=== PATIENT | female | born 1990 | race Caucasian/White ===

== ENCOUNTER 2019-07-01 15:18 | Outpatient (CLI) | payer OTHER, SELFPAY ==
--- NOTE | 2019-07-01 15:26 | USCV_ITS ---
Tran Burnsney Age: 29 Gender: F : 1990 Exam Date: 07/01/2019 15:45 Ordering Phys: Mike Broussard MD Technologist: Silver Dugan [place] [facility] [place]: ? 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 AO BP: 120 / 70 HR: 96 Rhythm: Sinus Technical Quality: Suboptimal MEASUREMENTS (Male / Female) Normal Values 2D ECHO LV Diastolic Diameter PLAX 3.5 cm 4.2 - 5.9 / 3.9 - 5.3 cm LV Systolic Diameter PLAX 1.6 cm IVS Diastolic Thickness 0.8 cm 0.6 - 1.0 / 0.6 - 0.9 cm IVS Systolic Thickness 1.3 cm LVPW Diastolic Thickness 0.9 cm 0.6 - 1.0 / 0.6 - 0.9 cm LVPW Systolic Thickness 1.0 cm LVOT Diameter 2.0 cm LV Ejection Fraction 2D Teich 85.7 % LV Ejection Fraction MOD 2C 60.7 % LV Ejection Fraction 2C AL 61.5 % LA Diameter 3.4 cm Aorta at Sinotubular Diameter 1.9 cm M-MODE LV Diastolic Diameter MM 4.2 cm 4.2 - 5.9 / 3.9 - 5.3 cm LV Systolic Diameter MM 3.1 cm LV Ejection Fraction MM Teich 52.2 % IVS Diastolic Thickness MM 1.0 cm 0.6 - 1.0 / 0.6 - 0.9 cm IVS Systolic Thickness MM 1.3 cm LVPW Diastolic Thickness MM 1.2 cm 0.6 - 1.0 / 0.6 - 0.9 cm LVPW Systolic Thickness MM 1.6 cm RV Diastolic Diameter MM 2.1 cm Aortic Annulus Diameter 2.8 cm LA Ao Ratio MM 1.1 MV E Point Septal Separation 1.2 cm DOPPLER AV Peak Velocity 155.0 cm/s LVOT Peak Velocity 115.0 cm/s AV Area Cont Eq vti 2.8 cm squared AV Area Cont Eq pk 2.4 cm squared MV Area PHT 5.0 cm squared Mitral E to A Ratio 1.0 MV E' Velocity 83.0 cm/s Mitral E to LV E' Septal Ratio 6.2 FINDINGS Left Ventricle Normal left ventricular size, systolic function and wall thickness, with no regional wall motion abnormalities. Normal left ventricular wall thickness. Normal diastolic filling pattern. Right Ventricle The right ventricle is normal in size and function. Right Atrium The right atrium is normal in size. Left Atrium The left atrium is normal in size. Mitral Valve Structurally normal mitral valve without significant stenosis or prolapse. There is no mitral regurgitation. Aortic Valve Structurally normal aortic valve without significant sclerosis or stenosis. There is no aortic regurgitation. The valve appears to be tricuspid Tricuspid Valve Structurally normal tricuspid valve without significant stenosis or regurgitation. Pulmonary artery systolic pressure is normal. Pulmonic Valve Structurally normal pulmonic valve without significant stenosis. There is no pulmonic regurgitation. Pericardium Normal pericardium without effusion. Aorta Normal ascending aorta dimension. CONCLUSIONS NO BUBBLES PASSED FROM RT TO LT HEART WITH OR WITHOUT VALSALVA Normal transthoracic echocardiogram. There are no prior echocardiogram studies to compare. Dr. Raghu Pham MD (Electronically Signed) Final Date: 01 July 2019 17:08 S
== END 2019-07-01 15:19 | disposition home or self-care (01) ==
LOC: RAD 15:19
PROVIDERS: Family Provider Family Medicine; PCP Family Medicine; Visit Provider Family Medicine
DX: Z82.79 Family history of other congenital malformations, deformations and chromosomal abnormalities (principal)
CPT/HCPCS: C8929

== ENCOUNTER → 2020-06-07 09:20 | Outpatient (BNVA) | payer OTHER, SELFPAY | PROVIDERS: Family Provider Family Medicine; PCP Family Medicine; Visit Provider Internal Medicine | DX: E03.9 Hypothyroidism, unspecified (principal); M25.40 Effusion, unspecified joint | CPT/HCPCS: 99204 ==

== ENCOUNTER 2020-06-23 14:53 | Outpatient (CLI) | payer OTHER, SELFPAY ==
--- NOTE | 2020-06-23 15:05 | XR_ITS ---
WS: [id number] LEFT HAND: 2 VIEW(S) TECHNIQUE: PA and lateral. HISTORY: M25.50 - Pain in unspecified joint COMPARISON: 04/28/2019 No acute fracture or dislocation. No soft tissue or bone abnormality. No erosions or osteopenia. XR/XR hand LT 2V [id number] IMPRESSION: Normal LEFT hand.
--- NOTE | 2020-06-23 15:05 | XR_ITS ---
WS: [id number] RIGHT HAND: 2 VIEW(S) TECHNIQUE: PA and lateral. HISTORY: M25.50 - Pain in unspecified joint COMPARISON: 04/28/2019 No acute fracture or dislocation. No soft tissue or bone abnormality. No erosions or osteopenia. XR/XR hand RT 2V [id number] IMPRESSION: Normal RIGHT hand.
== END 2020-06-23 14:54 | disposition home or self-care (01) ==
LOC: RADWPI 14:57
PROVIDERS: PCP Family Medicine; Visit Provider Internal Medicine
DX: M25.50 Pain in unspecified joint (principal); M10.9 Gout, unspecified; Z11.1 Encounter for screening for respiratory tuberculosis; Z11.59 Encounter for screening for other viral diseases; E03.9 Hypothyroidism, unspecified; R53.83 Other fatigue
CPT/HCPCS: 73120; 99204

== ENCOUNTER 2020-06-23 15:43 | Outpatient (CLI) | payer OTHER, SELFPAY ==
[2020-06-23 17:42] LABS: Basophils % 0.4 %; Eosinophils # 0.1 10^3/uL (0.0-0.8); Eosinophils % 0.5 %; Hematocrit 45.7 % (37.0-47.0); Hemoglobin 14.6 g/dL (11.5-15.3); Lymphocytes # 2.3 10^3/uL (0.8-4.8); Lymphocytes % 20.4 %; Mean Corpuscular HGB Conc 31.9 g/dL (30.0-36.0); Mean Corpuscular Hemoglobin 29.2 pg (28.0-34.0); Mean Corpuscular Volume 91.4 fL (81-99); Mean Platelet Volume 10.4 fL (7.4-10.4); Monocytes # 0.5 10^3/uL (0.2-0.9); Monocytes % 4.7 %; Neutrophils # 8.14 10^3/uL (1.8-7.7); Neutrophils % 73.7 %; Nucleated Red Blood Cells % 0 %; Platelet Count 335 10^3/cmm (130-400)
[2020-06-23 17:48] LABS: Alanine Aminotransferase 22 U/L (0-33); Albumin Level 4.1 g/dL (3.5-5.2); Alkaline Phosphatase 137 IU/L (35-105); Anion Gap 13.9 (5-19); Aspartate Amino Transferase 16 U/L (0-32); Blood Urea Nitrogen 10 mg/dL (6-20); Calcium 9.1 mg/dL (8.5-10.5); Carbon Dioxide 24 mmol/L (22-29); Chloride 102 mmol/L (98-107); Globulin 3.6 g/dL (1.3-4.6); Glomerular Filtration Rate 98.9 mL/min (90-130); Glucose 87 mg/dL (65-115); Magnesium 2.2 mg/dL (1.7-2.3); Osmolality Calculated 280 mOsm/kg (285-295); Potassium 3.9 mmol/L (3.5-5.1); Sodium 136 mmol/L (136-145); Total Bilirubin 0.3 mg/dL (0.15-1.2); Total Protein 7.7 g/dL (6.6-8.7); Uric Acid 5.2 mg/dL (2.4-5.7)
[2020-06-23 23:51] LABS: Ferritin 95 ng/mL (15-150); Iron 92 ug/dL (37-145)
[2020-06-24 06:22] LABS: C Reactive Protein 1.8 mg/L (0.0-4.9)
[2020-06-25 10:24] LABS: COMPLEMENT COMPONENT C3C 170 mg/dL (83-193); COMPLEMENT COMPONENT C4C 36 mg/dL (15-57)
[2020-06-25 12:59] LABS: COMPLEMENT, TOTAL (CH50) 40 U/mL (31-60)
[2020-06-25 13:29] LABS: Cyclic Citrullinated Peptide <16 UNITS; Quantiferon Mitogen >10.00 IU/mL; Quantiferon Nil 0.04 IU/mL; Quantiferon Plus TB1 <0.00 IU/mL; Quantiferon Plus TB2 <0.00 IU/mL; Quantiferon TB Gold NEGATIVE (NEGATIVE)
[2020-06-27 23:23] LABS: Tissue Transglutaminase IgA Ab <1 U/mL; Tissue transglutaminase Ab.IgG <1 U/mL
[2020-06-28 14:33] LABS: ANA SCREEN, IFA NEGATIVE (NEGATIVE)
[2020-06-28 15:03] LABS: CENTROMERE B ANTIBODY <1.0 NEG AI (<1.0 NEG); JO-1 ANTIBODY <1.0 NEG AI (<1.0 NEG); RNP ANTIBODY <1.0 NEG AI (<1.0 NEG); SCL-70 ANTIBODY <1.0 NEG AI (<1.0 NEG); SJOGREN'S ANTIBODY (SS-A) <1.0 NEG AI (<1.0 NEG); SM ANTIBODY <1.0 NEG AI (<1.0 NEG); SS-B <1.0 NEG AI (<1.0 NEG); THYROID PEROXIDASE ANTIBODIES 2 IU/mL (<9)
[2020-06-28 16:39] LABS: Gliadin Ab.IgA 5 U (<20); Gliadin Ab.IgG 3 U (<20)
[2020-06-28 22:43] LABS: Immunoglobulin A 134 mg/dL (47-310)
[2020-06-30 23:13] LABS: DNA AB (DS) CRITHIDIA,IFA NEGATIVE (NEGATIVE)
== END 2020-06-23 15:44 | disposition home or self-care (01) ==
PROVIDERS: PCP Family Medicine; Visit Provider Internal Medicine
DX: D86.9 Sarcoidosis, unspecified (principal); M25.50 Pain in unspecified joint; M32.9 Systemic lupus erythematosus, unspecified; M10.9 Gout, unspecified
CPT/HCPCS: 36415; 80053; 82728; 82784; 83516; 83540; 83735; 84550; 85025; 86140; 86480

== ENCOUNTER 2020-08-09 13:20 | Outpatient (CLI) | payer OTHER, SELFPAY ==
[2020-08-09 14:02] LABS: Basophils % 0.7 %; Eosinophils # 0.1 10^3/uL (0.0-0.8); Eosinophils % 1.5 %; Hematocrit 44.7 % (37.0-47.0); Hemoglobin 14.4 g/dL (11.5-15.3); Lymphocytes # 2.2 10^3/uL (0.8-4.8); Lymphocytes % 40.1 %; Mean Corpuscular HGB Conc 32.2 g/dL (30.0-36.0); Mean Corpuscular Hemoglobin 29.3 pg (28.0-34.0); Mean Platelet Volume 10.1 fL (7.4-10.4); Monocytes # 0.4 10^3/uL (0.2-0.9); Monocytes % 7.5 %; Neutrophils # 2.76 10^3/uL (1.8-7.7); Neutrophils % 50.2 %; Nucleated Red Blood Cells % 0 %; Platelet Count 292 10^3/cmm (130-400); Red Blood Count 4.91 10^6/uL (4.1-5.3); Red Cell Distribution Width 12.2 % (12.1-15.1); White Blood Count 5.5 10^3/uL (4.0-10.0)
[2020-08-09 14:51] LABS: Free T4 Free Thyroxine 1.27 ng/dL (0.82-1.77); Thyroid Stimulating Hormone 0.98 uIU/mL (0.27-4.20)
[2020-08-09 15:05] LABS: Hepatitis B Core AB, Total Non-Reactive (Nonreactive); Hepatitis B Surface Antigen Non-Reactive (Nonreactive); Hepatitis C Virus Antibody Non-Reactive (Nonreactive)
[2020-08-10 14:43] LABS: Thyroid Peroxidase Antobodies 2 IU/mL (<9)
[2020-08-12 17:02] LABS: HLA-B27 NEGATIVE (NEGATIVE)
== END 2020-08-09 13:21 | disposition home or self-care (01) ==
PROVIDERS: Internal Medicine; PCP Family Medicine; Visit Provider Internal Medicine
DX: Z51.81 Encounter for therapeutic drug level monitoring (principal); D72.829 Elevated white blood cell count, unspecified; E03.9 Hypothyroidism, unspecified
CPT/HCPCS: 36415; 84439; 84443; 85025; 86376; 86704; 86803; 86812; 87340

== ENCOUNTER 2020-08-31 16:17 | Outpatient (CLI) | payer OTHER, SELFPAY ==
--- NOTE | 2020-08-31 | US_ITS ---
WS: [id number] RIGHT UPPER QUADRANT ULTRASOUND HISTORY: ELEVATE ALKALINE PHOSPHATASE LEVEL COMPARISON: 09/12/2012 Liver: 15.4 cm in length. Top normal size liver. Moderate to severe coarsened echotexture and attenua tion from hepatic steatosis. The entire liver is not imaged well. No bile duct dilatation. Gallbladder: Prior cholecystectomy. CBD: 0.3 cm Pancreas: Not well visualized. Right kidney: 11.4 cm in length. Normal size and echogenicity. No hydronephrosis or mass. Aorta and IVC: Unremarkable abdominal aorta and IVC. No ascites. US/US liver [id number] IMPRESSION: 1. Prior cholecystectomy. 2. Top normal size liver with moderate to severe hepatic steatosis. Progressio n of hepatic steatosis since 2012.
== END 2020-08-31 16:18 | disposition home or self-care (01) ==
LOC: RADOUTREAD 16:22
PROVIDERS: PCP Family Medicine; Visit Provider Family Medicine
DX: R74.8 Abnormal levels of other serum enzymes (principal); Z90.49 Acquired absence of other specified parts of digestive tract
CPT/HCPCS: 76705

== ENCOUNTER 2023-07-12 08:58 | Outpatient (CLI) | payer OTHER, SELFPAY ==
--- NOTE | 2023-07-12 09:08 | USCV_ITS ---
Shaina Burns Age: 33 Gender: F : 1990 Exam Date: 07/12/2023 09:42 Ordering Phys: Mike Broussard MD Technologist: Silver Dugan [place]am [place] [facility] [place] Indication: orthostatic hypotension BP: 141 / 76 HR: Rhythm: Sinus Technical Quality: Adequate MEASUREMENTS (Male / Female) Normal Values 2D ECHO LV Diastolic Diameter PLAX 4.7 cm 4.2 - 5.9 / 3.9 - 5.3 cm IVS Diastolic Thickness 0.9 cm 0.6 - 1.0 / 0.6 - 0.9 cm IVS Systolic Thickness 1.1 cm LVPW Diastolic Thickness 0.7 cm 0.6 - 1.0 / 0.6 - 0.9 cm LVPW Systolic Thickness 1.5 cm LVOT Diameter 2.0 cm LV Ejection Fraction 2D Teich 67.0 % LV Ejection Fraction MOD 2C 56.1 % Aorta at Sinotubular Diameter 2.5 cm IVC Diameter 1.5 cm M-MODE LA Ao Ratio MM 1.5 AV Cusp Separation MM 2.1 cm DOPPLER AV Peak Velocity 146.0 cm/s LVOT Peak Velocity 136.0 cm/s AV Area Cont Eq vti 2.8 cm squared AV Area Cont Eq pk 2.8 cm squared MV Area PHT 3.8 cm squared Mitral E to A Ratio 1.3 TV Peak Velocity 187.5 cm/s TR Peak Velocity 189.0 cm/s TR Peak Gradient 14.3 mmHg Right Atrial Pressure 3.0 mmHg Pulmonary Artery Systolic Pressu 17.3 mmHg PV Peak Velocity 118.0 cm/s FINDINGS Left Ventricle Left ventricle is normal size. LV systolic function is normal with EF of 60 to 65%. No regional wall motion abnormalities are seen. Right Ventricle Normal in size and function Right Atrium Normal in size Left Atrium Normal in size Mitral Valve Structurally normal mitral valve. Trace mitral regurgitation Aortic Valve Structurally normal aortic valve. No significant stenosis or regurgitation seen. Tricuspid Valve Trace tricuspid regurgitation. Pulmonary artery systolic pressure is normal Pulmonic Valve Not well visualized Pericardium Normal Aorta Normal in size IVC Appears to be normal CONCLUSIONS LV systolic function is normal with EF of 60 to 65%. Trace mitral regurgitation Trace tricuspid regurgitation Compared to prior echocardiogram from 2019, no significant changes are seen Gamal Mckeon MD (Electronically Signed) Final Date: 21 July 2023 11:35 S
== END 2023-07-12 08:59 | disposition home or self-care (01) ==
LOC: RAD 09:01
PROVIDERS: PCP Family Medicine; Visit Provider Family Medicine
DX: I95.1 Orthostatic hypotension (principal)
CPT/HCPCS: 93306

== ENCOUNTER → 2023-09-10 12:22 | Outpatient (BNVA) | payer OTHER, SELFPAY | PROVIDERS: PCP Family Medicine; Visit Provider Internal Medicine | DX: E03.9 Hypothyroidism, unspecified (principal) | CPT/HCPCS: 36415; 84439; 84443; 84480; 86376; 86800 ==

== ENCOUNTER 2023-11-01 10:29 | Outpatient (CLI) | payer OTHER, SELFPAY ==
[2023-11-01 11:24] LABS: Free T4 Free Thyroxine 1.06 ng/dL (0.82-1.77); Thyroid Stimulating Hormone 2.49 uIU/mL (0.27-4.20)
[2023-11-02 09:10] LABS: T3 Total 131 ng/dL (76-181)
== END 2023-11-01 10:30 | disposition home or self-care (01) ==
LOC: LAB 10:31
PROVIDERS: PCP Family Medicine; Visit Provider Internal Medicine
DX: E07.9 Disorder of thyroid, unspecified (principal); E03.9 Hypothyroidism, unspecified
CPT/HCPCS: 36415; 84439; 84443; 84480

== ENCOUNTER 2024-01-30 10:18 | Outpatient (CLI) | payer OTHER, SELFPAY ==
[2024-01-30 11:21] LABS: Cortisol Random 16.33 ug/dL (2.47-19.5); Free T4 Free Thyroxine 1.13 ng/dL (0.82-1.77); Thyroid Stimulating Hormone 0.93 uIU/mL (0.27-4.20)
== END 2024-01-30 10:19 | disposition home or self-care (01) ==
LOC: LAB 10:18
PROVIDERS: PCP Family Medicine; Visit Provider Internal Medicine
DX: E07.9 Disorder of thyroid, unspecified (principal); E03.9 Hypothyroidism, unspecified; E16.1 Other hypoglycemia
CPT/HCPCS: 36415; 82533; 84439; 84443

== ENCOUNTER 2024-12-01 09:33 | Outpatient (CLI) | payer OTHER, SELFPAY ==
[2024-12-01 11:10] LABS: Free T4 Free Thyroxine 0.93 ng/dL (0.82-1.77); Thyroid Stimulating Hormone 3.43 uIU/mL (0.27-4.20)
== END 2024-12-01 09:34 | disposition home or self-care (01) ==
PROVIDERS: PCP Family Medicine; Visit Provider Internal Medicine
DX: E07.9 Disorder of thyroid, unspecified (principal); E03.9 Hypothyroidism, unspecified
CPT/HCPCS: 36415; 84439; 84443

== ENCOUNTER → 2024-12-10 12:34 | Outpatient (BNVA) | payer OTHER, SELFPAY | PROVIDERS: PCP Family Medicine; Visit Provider Internal Medicine | DX: E03.9 Hypothyroidism, unspecified (principal); E16.1 Other hypoglycemia; R55 Syncope and collapse; M25.40 Effusion, unspecified joint | CPT/HCPCS: 36415; 83036 ==